=== PATIENT | male | born 1975 | race Caucasian/White ===

== ENCOUNTER 2017-04-14 07:41 | Emergency (ER) | payer SELFPAY ==
[~2017-04-14] VITALS: Ht 193 cm; Wt 131.5 kg
== END 2017-04-14 09:36 | disposition home or self-care (01) ==
LOC: ED 07:41
DX: M79.672 Pain in left foot (principal); F17.200 Nicotine dependence, unspecified, uncomplicated

== ENCOUNTER 2017-05-31 09:52 | Emergency (ER) | payer OTHER ==
[~2017-05-31] VITALS: Ht 190.5 cm; Wt 131.5 kg
== END 2017-05-31 11:05 | disposition home or self-care (01) ==
LOC: ED 09:52
DX: T23.352A Burn of third degree of left palm, initial encounter (principal); T23.251A Burn of second degree of right palm, initial encounter; F17.200 Nicotine dependence, unspecified, uncomplicated; X08.8XXA Exposure to other specified smoke, fire and flames, initial encounter; Y93.89 Activity, other specified; Y92.69 Other specified industrial and construction area as the place of occurrence of the external cause; Y99.9 Unspecified external cause status

== ENCOUNTER 2017-07-18 19:21 | Emergency (ER) | payer SELFPAY ==
[~2017-07-18] VITALS: Ht 190.5 cm; Wt 127.0 kg
[2017-07-18] MEDS ORDERED: MELOXICAM7.5 MG PO (21:53)
== END 2017-07-18 21:51 | disposition home or self-care (01) ==
LOC: ED 19:21
DX: S86.812A Strain of other muscle(s) and tendon(s) at lower leg level, left leg, initial encounter (principal); M25.462 Effusion, left knee; F17.200 Nicotine dependence, unspecified, uncomplicated; W10.8XXA Fall (on) (from) other stairs and steps, initial encounter; Y93.89 Activity, other specified; Y92.89 Other specified places as the place of occurrence of the external cause; Y99.9 Unspecified external cause status

== ENCOUNTER 2017-08-10 16:09 | Emergency (ER) | payer OTHER ==
[~2017-08-10] VITALS: Ht 190.5 cm; Wt 127.0 kg
[~2017-08-10 16:09] MED LIST: MELOXICAM7.5 MG PO
== END 2017-08-10 18:23 | disposition home or self-care (01) ==
LOC: ED 16:09
DX: M79.671 Pain in right foot (principal); F17.200 Nicotine dependence, unspecified, uncomplicated

== ENCOUNTER → 2017-08-21 | Outpatient (CLI) | payer OTHER | END | disposition home or self-care (01) | LOC: MRI 10:50 | DX: S83.412A Sprain of medial collateral ligament of left knee, initial encounter (principal); S83.242A Other tear of medial meniscus, current injury, left knee, initial encounter; Z91.81 History of falling; X58.XXXA Exposure to other specified factors, initial encounter; Y93.89 Activity, other specified; Y92.89 Other specified places as the place of occurrence of the external cause; Y99.8 Other external cause status ==

== ENCOUNTER → 2017-12-26 | Outpatient (CLI) | payer OTHER | END | disposition home or self-care (01) | LOC: CARD 12:14 | DX: I10 Essential (primary) hypertension (principal); F17.200 Nicotine dependence, unspecified, uncomplicated ==

== ENCOUNTER → 2018-01-11 | Outpatient (CLI) | payer OTHER | END | disposition home or self-care (01) | LOC: US 12:55 | DX: I10 Essential (primary) hypertension (principal); E04.1 Nontoxic single thyroid nodule; Z82.49 Family history of ischemic heart disease and other diseases of the circulatory system ==

== ENCOUNTER → 2018-07-16 | Outpatient (CLI) | payer OTHER | END | disposition home or self-care (01) | LOC: RAD 15:40 | DX: M25.511 Pain in right shoulder (principal) ==

== ENCOUNTER → 2018-07-26 | Outpatient (CLI) | payer OTHER | END | disposition home or self-care (01) | LOC: RAD 09:54 | DX: M79.671 Pain in right foot (principal); M10.9 Gout, unspecified ==

== ENCOUNTER → 2019-01-24 | Outpatient (CLI) | payer OTHER | END | disposition home or self-care (01) | LOC: US 16:41 | DX: M79.89 Other specified soft tissue disorders (principal) ==

== ENCOUNTER 2019-07-06 20:40 | Emergency (ER) | payer OTHER ==
[~2019-07-06] VITALS: Ht 190.5 cm; Wt 136.1 kg
== END 2019-07-06 23:26 | disposition home or self-care (01) ==
LOC: ED 20:40
DX: S62.111A Displaced fracture of triquetrum [cuneiform] bone, right wrist, initial encounter for closed fracture (principal); R07.81 Pleurodynia; W00.0XXA Fall on same level due to ice and snow, initial encounter; Y93.89 Activity, other specified; Y92.89 Other specified places as the place of occurrence of the external cause; Y99.8 Other external cause status

== ENCOUNTER 2019-10-09 07:27 | Emergency (ER) | payer OTHER ==
[~2019-10-09] VITALS: Ht 193 cm; Wt 131.5 kg
[2019-10-09 08:11] LABS: BASO # 0.1 10*3/uL (0.0-0.1); BASO % 1.1 % (0.0-1.0); EOS # 0.7 10*3/uL (0.0-0.4); EOS % 5.8 % (1.0-4.0); HEMATOCRIT 45.3 % (42.0-52.0); HEMOGLOBIN 15.3 g/dl (14.0-18.0); LYMPH # 2.6 10*3/uL (1.3-4.4); MEAN CELL VOLUME 92.4 fl (80.0-94.0); MEAN CORPUSCULAR HGB 31.2 pg (27.0-31.0); MEAN CORPUSCULAR HGB CONC 33.8 g/dl (33.0-37.0); MEAN PLATELET VOLUME 9.1 fl (9.6-12.3); MONO # 1.2 10*3/uL (0.1-1.0); MONO % 9.8 % (3.0-9.0); NEUT # 7.3 10*3/uL (2.3-7.9); PLATELET COUNT AUTOMATED 332 10*3/uL (130-400)
[2019-10-09 08:25] LABS: ALBUMIN 3.6 gm/dl (3.1-4.5); ALKALINE PHOSPHATASE 115 U/L (45-117); BUN 11 mg/dl (7-24); CHLORIDE 108 mmol/L (98-107); CREATININE 0.83 mg/dL (0.70-1.30); POTASSIUM 3.6 mmol/L (3.5-5.1); SGOT/AST 18 IU/L (3-35); SGPT/ALT 25 U/L (12-78); SODIUM 140 mmol/L (136-145); TOTAL PROTEIN 7.6 gm/dL (6.4-8.2); URIC ACID 6.6 mg/dL (3.5-7.2)
[2019-10-09] MEDS ORDERED: Motrin,Rufen800 MG PO (08:49)
[2019-10-09] MEDS ORDERED: MEDROL DOSEPAK4 MG PO (08:49)
== END 2019-10-09 09:10 | disposition home or self-care (01) ==
LOC: ED 07:27
PROVIDERS: Emergency Medicine
DX: M13.842 Other specified arthritis, left hand (principal); M13.832 Other specified arthritis, left wrist

== ENCOUNTER → 2020-04-18 | Outpatient (CLI) | payer OTHER ==
[~2020-04-18] MED LIST changes: +MEDROL DOSEPAK4 MG PO; +Motrin,Rufen800 MG PO
[2020-04-18 10:48] LABS: BASO # 0.1 10*3/uL (0.0-0.1); BASO % 1.2 % (0.0-1.0); EOS # 0.8 10*3/uL (0.0-0.4); LYMPH # 3.2 10*3/uL (1.3-4.4); LYMPH % 32.5 % (27.0-41.0); MEAN CELL VOLUME 93.6 fl (80.0-94.0); MEAN CORPUSCULAR HGB 31.2 pg (27.0-31.0); MEAN CORPUSCULAR HGB CONC 33.3 g/dl (33.0-37.0); MEAN PLATELET VOLUME 9.2 fl (9.6-12.3); MONO # 0.9 10*3/uL (0.1-1.0); MONO % 8.8 % (3.0-9.0); NEUT # 4.8 10*3/uL (2.3-7.9); PLATELET COUNT AUTOMATED 400 10*3/uL (130-400); RED BLOOD COUNT 4.81 10*6/uL (4.50-5.90); RED CELL DISTRI WIDTH 12.8 % (0-14.5); WHITE BLOOD COUNT 9.8 10*3/uL (4.8-10.8)
[2020-04-18 11:14] LABS: ALBUMIN 4.1 gm/dl (3.1-4.5); ALKALINE PHOSPHATASE 76 U/L (45-117); BUN 14 mg/dl (7-24); CHLORIDE 111 mmol/L (98-107); CHOLESTEROL 214 mg/dL (<200); CREATININE 1.05 mg/dL (0.70-1.30); HDL CHOLESTEROL 26 mg/dl (40-60); LDL CHOLESTEROL 127 mg/dL (9-159); POTASSIUM 3.9 mmol/L (3.5-5.1); SGOT/AST 19 IU/L (3-35); SGPT/ALT 31 U/L (12-78); SODIUM 142 mmol/L (136-145); TRIGLYCERIDES 303 mg/dl (<150); VLDL CHOLESTEROL 61 mg/dL (6-40)
== END | disposition home or self-care (01) ==
LOC: LAB 10:17
PROVIDERS: ATTEND Nurse Practitioner Family
DX: I10 Essential (primary) hypertension (principal); E78.1 Pure hyperglyceridemia

== ENCOUNTER 2023-11-25 11:43 | Emergency (ER) | payer OTHER ==
[~2023-11-25] VITALS: Ht 190.5 cm; Wt 121.1 kg
[2023-11-25] MEDS ORDERED: LISINOPRIL10 M1 PO (12:08)
[2023-11-25] MEDS ORDERED: HYDROCHLOROTHIA25 M1 PO (12:09)
[2023-11-25] MEDS ORDERED: Tdap Vaccine 0.5 ML SYR (Adult Vaccine) IM ONE (12:25)
[2023-11-25] MEDS ORDERED: Bacitracin Zinc 14 GM TUBE T ONE (12:25)
[2023-11-25] MEDS ORDERED: Lidocaine Hydrochloride 2% 10 ML AMP SC ONE (12:25)
[2023-11-25] MEDS ORDERED: CEPHALEXIN500 M1 PO (13:11)
== END 2023-11-25 13:14 | disposition home or self-care (01) ==
LOC: ED 11:43
DX: S61.215A Laceration without foreign body of left ring finger without damage to nail, initial encounter (principal); Z79.899 Other long term (current) drug therapy; W26.0XXA Contact with knife, initial encounter; Y93.89 Activity, other specified; Y92.89 Other specified places as the place of occurrence of the external cause; Y99.8 Other external cause status

== ENCOUNTER 2024-11-16 07:19 | Emergency (ER) | payer OTHER ==
[~2024-11-16] VITALS: Ht 190.5 cm; Wt 122.5 kg
[~2024-11-16 07:19] MED LIST changes: +CEPHALEXIN500 M1 PO; +HYDROCHLOROTHIA25 M1 PO; +LISINOPRIL10 M1 PO
[2024-11-16] MEDS ORDERED: CEPHALEXIN500 M1 PO (09:34)
== END 2024-11-16 09:59 | disposition home or self-care (01) ==
LOC: ED 07:19
DX: S61.411A Laceration without foreign body of right hand, initial encounter (principal); Z79.899 Other long term (current) drug therapy; Z98.890 Other specified postprocedural states; W18.39XA Other fall on same level, initial encounter; Y93.89 Activity, other specified; Y92.89 Other specified places as the place of occurrence of the external cause; Y99.8 Other external cause status

== ENCOUNTER → 2025-01-20 | Outpatient (CLI) | payer OTHER | END | disposition home or self-care (01) | LOC: RAD 08:19 | PROVIDERS: ATTEND Nurse Practitioner Family | DX: M53.3 Sacrococcygeal disorders, not elsewhere classified (principal); M47.817 Spondylosis without myelopathy or radiculopathy, lumbosacral region ==